=== PATIENT | female | born 1990 | race Caucasian/White ===

== ENCOUNTER 2018-04-20 18:42 | Inpatient (IN) | payer BC, SELFPAY ==
[2018-04-20 15:57] VITALS: BMI 25.7
--- NOTE | 2018-04-20 19:27 | PCM.HP.OB ---
History Date of Admission: 04/20/18 Final KRISTIN: 05/04/18 Final KRISTIN Source: US <20 weeks Gestational age: 38 Weeks and 0 Days History of this : @ 38 wks c/o contractions. pt was monitored in L&D and made cervical change from 3 to 5cm/80/-1. Pt denies VB, LOF. Pertinent Past Medical History: negative Allergies No Known Allergies Allergy (Verified 04/20/18 15:58) PNV Smoking Status: Never smoker Alcohol: None Number of Fetus(es): 1 Review of Systems Constitutional: Denies: Anorexia Cardiovascular: Denies: Chest Pain Gastrointestinal: Denies: Abdominal Pain Physical Exam General: Alert, Oriented x3 Abdomen: Soft, Non Tender, Gravid Estimated gestational size: Appropriate for gestational size Presentation: Cephalic Cervix Dilation (cm): 5 Station: -1 Effacement (%): 80 Assessment/Plan 27yo @ 38 weeks in labor 1) admit to L&D 2) requesting intermittent monitoring- low risk 3) A+, RUB imm, syphilis neg, HIV neg, HEP B neg, GBS Neg 4) Anticipate 5) Nitrous or epidural if requested for pain
[2018-04-20 19:37] LABS: Hematocrit 40.2 % (37-47); Hemoglobin 13.4 g/dl (12.0-15.0); Mean Corp Hgb Conc 33.3 g/gl (32-36); Mean Corpuscular Hgb 31.8 pg (27.0-32.0); Mean Corpuscular Volume 95.5 fL (81-99); Mean Platelet Vol. 9.8 fl (6.2-12.0); Platelet Count 246 K/mm3 (150-450); RBC Distribution Width CV 13.2 % (11.6-14.6); RBC Distribution Width SD 45.3 fl (35.1-43.9); Red Blood Count 4.21 M/mm3 (4.2-5.4); White Blood Count 11.6 K/mm3 (4.4-11.0)
[2018-04-20 19:38] LABS: Scan Indicated on CBC? Y/N NO
[2018-04-20] MEDS: Oxytocin 30 units/NS 500 ml 30 UNITS/500 ML IV.SOLN 334 UNITS IV (22:15)
[2018-04-20] MEDS: 0.9% Saline Lock 10 ML Syringe IV ×2 (22:17→23:03)
--- NOTE | 2018-04-20 22:21 | PCM.OB.VAG ---
Vaginal Delivery Maternal Presentation: Active Labor Amniotic Membrane Rupture Type: Artificial Amniotic Fluid Description: Clear Final KRISTIN: 05/04/18 Gestational age: 38 Weeks and 0 Days Date of Procedure: 04/20/18 Pre-Operative Diagnosis: term gestation, spontaneous labor Post-Operative Diagnosis: Live male infant Surgery/ Procedure Performed: Spontaneous Vaginal Delivery Type of Anesthesia: None Description of Procedure: of live male infant born without complication. Delayed cord clamping performed. No lacerations. Placenta delivered intact. Presentation: Vertex Placental Delivery Description: Spontaneous Placenta Disposition: [facility] Cord Vessel Description: 3 Vessels Cord Entanglement: None Estimated Blood Loss: 200 Infant A gender: Male (1 minute): 8 (5 minute): 9 Episiotomy Description: None Laceration: None Medications given after delivery: IV Pitocin Complications: None
[2018-04-20] MEDS: Oxytocin 30 units/NS 500 ml 30 UNITS/500 ML IV.SOLN 167 UNITS IV (22:45)
[2018-04-20] MEDS: Ibuprofen 600 MG Tablet PO (23:02)
[2018-04-21] MEDS: Methylergonovine 0.2 MG/ML Ampul IM (00:16)
[2018-04-21 04:54] VITALS: BP 105/58; PULSE 63; RESP 16; TEMP 36.9
[2018-04-21] MEDS: Acetaminophen 500 MG Tablet 1000 MG PO (04:58)
--- NOTE | 2018-04-21 07:53 | PCM.PN.OB ---
Subjective: pt seen at bedside, doing well. pt reports good pain control. lochia mild. breast feeding. - Physical Exam General: Alert, Oriented x3 Abdomen: Soft, Non Tender, - - fundus firm Extremities: No Calf Tenderness Vital Signs Temp Pulse Resp BP 98.5 F 63 16 105/58 L 04/21/18 04:54 04/21/18 04:54 04/21/18 04:54 04/21/18 04:54 Oxygen Delivery Method Room Air Weight: 74.5 kg Body Mass Index (BMI) 25.7 Laboratory Tests Past 24 Hrs 04/20/18 04/20/18 19:15 19:15 WBC 11.6 H RBC 4.21 Hgb 13.4 Hct 40.2 MCV 95.5 MCH 31.8 MCHC 33.3 RDW 13.2 RDW Differential 45.3 H Plt Count 246 MPV 9.8 Blood Type A POSITIVE Antibody Screen NEGATIVE Medical Necessity - Tobacco Use Smoking Status: Never smoker Assessment/Plan PPD#1, doing well routine care pain mgmt
--- NOTE | 2018-04-21 07:56 | DCINST_ITS ---
Discharge Diet: No Restrictions Discharge Activity: Return to Normal Activity, May not drive while taking narcotic pain medications., May Shower May resume sexual activity in: 4-6 weeks Additional Activity Instructions:: Nothing in the vagina for 4-6 weeks. You may return to work/school in 6 weeks. Call your doctor if your incision/area has: Continuous Slow Oozing, Sudden Increased Bleeding, Increased Pain/ Swelling, Increased Redness, Foul Smelling Discharge Additional Instructions: If you experience any of the following, contact your healthcare provider. * Bleeding that soaks a pad every hour for 2 hours * Fever 100.4 or higher * Unrelieved incision or abdominal pain * Swelling, redness, discharge or bleeding from your incision or episiotomy site * Your incision begins to separate * Problems urinating (including inability to urinate or burning while urinating) . * Visual changes * Severe headache * Flu-like symptoms * Pain or redness in one of both of your breasts * Pain, warmth, tenderness or swelling in your legs, especially the calf area * Frequent nausea and vomiting * Symptoms of depression or anxiety If you experience any of the following, call 911 or go to the nearest Emergency Room. * Chest pain * Problems breathing * Seizure activity * Partial or complete paralysis of a body part, slurred speech, weakness or drooping of the face, or a sudden inability to walk or hold your balance Allergies/Adverse Reactions: Allergies No Known Allergies Allergy (Verified 04/20/18 15:58) Medications to take at Discharge Vits [Prenatabs FA ] 1 tab PO DAILY 08/11/14 Acetaminophen [Tylenol] 650 mg PO PRN PRN 04/20/18 Ibuprofen [Motrin] 800 mg PO Q8H PRN PRN #30 tab 04/21/18 The following prescriptions were given: Ibuprofen [Motrin] 800 mg PO Q8H PRN PRN #30 tab PRN Reason: Pain When: Call to make an appointment with your doctor in 6 weeks. If you had elevated Blood Pressure or 4th degree laceration you will need to be seen in 2 weeks. Primary Care Physician: Haile Fong MD [Primary Care Provider] -
[2018-04-21 08:10] VITALS: BP 103/59; PULSE 66; RESP 18; TEMP 36.6
[2018-04-21] MEDS: Ibuprofen 600 MG Tablet PO ×2 (08:18→16:49)
[2018-04-21 12:30] VITALS: BP 101/67; PULSE 72; RESP 18; TEMP 36.2
[2018-04-21 16:30] VITALS: BP 107/77; PULSE 67; RESP 18; TEMP 36.4; O2SAT 97
[2018-04-21 20:50] VITALS: BP 102/57; PULSE 72; RESP 16; TEMP 36.6
[2018-04-22 01:20] VITALS: BP 117/75; PULSE 62; RESP 18; TEMP 36
[2018-04-22] MEDS: Ibuprofen 600 MG Tablet PO (01:24)
--- NOTE | 2018-04-22 07:52 | PCM.PN.OB ---
Subjective: pt seen at bedside, doing well. pt reports good pain control. lochia mild. breast feeding. - Physical Exam General: Alert, Oriented x3 Abdomen: Soft, - - fundus firm Extremities: No Calf Tenderness Vital Signs Temp Pulse Resp BP Pulse Ox 96.8 F L 62 18 117/75 97 04/22/18 01:20 04/22/18 01:20 04/22/18 01:20 04/22/18 01:20 04/21/18 16:30 Oxygen Delivery Method Room Air Weight: 74.5 kg Body Mass Index (BMI) 25.7 Medical Necessity - Tobacco Use Smoking Status: Never smoker Assessment/Plan PPD#2, doing well dc home today
[2018-04-22 08:00] VITALS: BP 103/65; PULSE 76; RESP 18; TEMP 36.7; O2SAT 98
== END 2018-04-22 09:25 | disposition home or self-care (01) | DRG 775 ==
LOC: WPOUT 18:42
PROVIDERS: Admitting Provider Obstetrics & Gynecology; Family Provider Family Medicine; PCP Family Medicine; Visit Provider Obstetrics & Gynecology
DX: O80 Encounter for full-term uncomplicated delivery (principal); Z3A.38 38 weeks gestation of pregnancy; Z37.0 Single live birth
CPT/HCPCS: 59025; 59050; 85027; 86850; 86900; 99218; A4216; G0378

== ENCOUNTER 2020-10-20 12:27 | Day surgery (SDC) | payer BC, SELFPAY ==
--- NOTE | 2020-10-19 08:04 | PCM.HP.BLA ---
History and Physical Date of Admission: 10/20/20 Sophia Willson Physician Specialty: BUSINESS PROCESS ARCHITECT H&P ? Signed Encounter Date: 10/05/2020 Viola Frances Hide copied text Frank for details Pre-Op History and Physical ? HPI: The patient is a 29 year old female presenting for pre-operative visit. She is scheduled for laparoscopic bilateral salpingectomy , for desires sterilization on 10/20/20. Procedure discussed along with risks, benefits and complications. Other alternatives discussed for management. Consent form signed? Yes. ? ? PAST MEDICAL HISTORY PAST MEDICAL HISTORY Diagnosis Date ? Oligomenorrhea ? ? ? PAST SURGICAL HISTORY PAST SURGICAL HISTORY Procedure Laterality Date ? LAPAROSCOPY, SURGICAL, APPENDECTOMY ? ? PAST SURGICAL HISTORY OF ? 08/11/14 ? repair of Sulcus tear with Delivery of child ? ? ? CURRENT MEDICATIONS Current Outpatient Medications Medication Sig Dispense Refill ? omega-3s/dha/epa/fish oil/D3 (VITAMIN-D + OMEGA-3 ORAL) Take by mouth. ? ? ? Desogestrel-Ethinyl Estradiol (APRI) 0.15-0.03 mg per tablet Take 1 tablet by mouth once daily. 3 Package 3 ? simethicone, chewable (MYLICON) 80 mg chewable tablet Take 1 tablet by mouth every 6 hours as needed. 30 tablet 0 ? ibuprofen (MOTRIN) 600 mg tablet Take 1 tablet by mouth every 6 hours as needed. 30 tablet 1 ? No current facility-administered medications for this visit. ? ? ALLERGIES: Patient has no known allergies. ? PERSONAL HISTORY: SOCIAL HISTORY Social History ? Tobacco Use ? Smoking status: Never Smoker ? Smokeless tobacco: Never Used Substance Use Topics ? Alcohol use: No ? ? Comment: None ? Drug use: No ? FAMILY HISTORY: FAMILY HISTORY FAMILY HISTORY Problem Relation Age of Onset ? other (Dementia) Maternal Grandmother ? ? Diabetes Maternal Grandfather ? ? Hypertension Paternal Grandmother ? ? Breast Cancer Maternal Aunt ? ? ? REVIEW OF SYMPTOMS: negative except as noted above PHYSICAL EXAMINATION: ? VITALS: Blood pressure 126/78, weight 133 lb (60.3 kg), last menstrual period 08/29/2020, currently . ? GENERAL: The patient is well nourished, well hydrated in no acute distress. , The patient is oriented to time, place, and person. NECK: Supple. No lynphadenopathy, normal thyroid, no thyromegaly. LUNGS: Clear to auscultation bilaterally. no wheezes, rhonchi or rales HEART: Regular rate and rhythm, Normal heart sounds and No murmurs or gallops GENITALIA: exam deferred WET PREP: Not indicated ? IMPRESSION: 29yo here for pre op for bilateral salpingectomy ? PLAN: Consent signed and post op meds given. ? Pt has been counseled on risks/benefits and alternatives of surgery including but not limited to anesthesia, bleeding, infection, injury to pelvic structures including bowel, bladder, ureters and vessels. Pt wishes to proceed with surgery at this time. COVID testing reviewed ? I have reviewed and updated past medical and surgical history, medications and allergies Sophia Willson MD ?4:52 PM Office Visit on 10/05/2020 Procedure Criteria Procedure Type: Elective COVID Risk Discussion: The surgeon/proceduralist and patient have discussed in detail the risk of exposure to and/or potential harm posed by the COVID-19 virus with having a surgery/procedure at this time versus the risk of delaying the surgery/procedure. It is not possible to know either the risk of delaying the surgery or procedure or chance of getting an infection with perfect accuracy, but a joint decision was made between the patient and the surgeon/proceduralist to proceed at this time with the scheduled surgery/procedure as indicated on the consent form.
[2020-10-20 12:46] LABS: Internal QC Validated? YES +Cl - CLEAR BKGD; Pregnancy, Urine Negative Negative
[2020-10-20 12:56] VITALS: BP 144/75; PULSE 91; RESP 16; TEMP 37.3; O2SAT 100; BMI 19.8
[2020-10-20 12:58] LABS: Hematocrit 40.9 % (37-47); Hemoglobin 13.7 g/dL (12.0-15.0); Mean Corp Hgb Conc 33.5 g/dL (32-36); Mean Corpuscular Hgb 32.2 pg (27.0-32.0); Mean Corpuscular Volume 96.2 fL (81-99); Mean Platelet Vol. 9.4 fl (6.2-12.0); Platelet Count 276 K/mm3 (150-450); RBC Distribution Width CV 11.7 % (11.6-14.6); RBC Distribution Width SD 41.1 fl (35.1-43.9); Red Blood Count 4.25 M/mm3 (4.2-5.4); White Blood Count 10.6 K/mm3 (4.4-11.0)
[2020-10-20] MEDS: 0.9% Normal Saline 1,000 ML 75 ML IV (13:02)
[2020-10-20] MEDS: Lactated Ringers 1,000 ML 100 ML IV (13:46)
--- NOTE | 2020-10-20 14:00 | FALS_PTH ---
PATIENT: JES MARSH LOC: [facility] U#:[id number] AGE/SX: 30/F ROOM: RE10/20/[address]: Dr. Sophia Thibodeaux, MDDOB: 1990 BED: DIS: 10/20/2020 SPEC #: [id number] RECD: 10/21/20 07:05 STATUS: JUVE JENNIE #: [id number] MAURICIO: 10/20/20 14:[address]: Sophia Thibodeaux DEPT: SURGICAL PATHOLOGY RECD BY: Kenya Allen ENTERED: 10/21/20 08:39 SP TYPE: FALL TUBES OTHR DR: Erendira Primary Care Phys Tissues: Fallopian tube Procedures: Surgery Specimen Level II Surgery Specimen Level IV HEADER OPERATION: Laparoscopic salpingectomy PRE-OP DIAGNOSIS: Sterilization TISSUE SUBMITTED: Bilateral fallopian tubes MICROSCOPIC DIAGNOSIS Right and left fallopian tubes, bilateral salpingectomies: Two complete segments of fallopian tubes. One fallopian tube with benign paratubal cyst. AM:sharonda 10/24/20 MICROSCOPIC DESCRIPTION Slides are reviewed. GROSS DESCRIPTION Received in fixative is one container labeled with the patient's name and designated bilateral fallopian tubes. The specimen consists of two fallopian tubes with an average length of 6 cm and has an average diameter of 0.7 cm. Both fallopian tubes have normal fimbriated ends. No mass lesions are identified. Corner Brace Block Machine Operator sections are submitted in two cassettes as follows: 1 - one fallopian tube, 2 - the other fallopian tube. / AM:sharonda 10/21/20 TC:5 CPT: 61790, 43621
[2020-10-20] MEDS: Bupivacaine Mpf 0.5% 30 ML VIAL (14:27)
--- NOTE | 2020-10-20 14:27 | OP.PCM_ITS ---
Report of Operation Date of Procedure: 10/20/20 - start 1405, end 1426 Pre-Operative Diagnosis: Desires sterilization Post-Operative Diagnosis: same Surgery/Procedure Performed:: laparoscopic bilateral salpingectomy Description of Surgical Findings:: normal tubes and ovaries bilaterally. mower sharpener: Ellen paul MS3 Type of Anesthesia:: General Special Medications: marcaine 0.5% Specimen's removed: bilateral fallopian tubes Drains: none Estimated Blood Loss (mL): 5cc Fluids Replaced: 1000cc Description of Procedure: After informed consent was obtained patient was taken to the operating room she was placed in supine position she was given anesthesia. She was then placed in the [facility] stirrups and she was prepped and draped in normal sterile fashion. Bladder was drained prior to the start of procedure. At this time attention was turned to the vaginal portion where weighted speculum placed at posterior fornix vagina single-tooth tenaculum was used to gently grasp the internal the cervix. uterus was gently sounded to approximately 7 cm. Uterine manipulator was placed without difficulty. Legs then placed in parallel with the abdomen the tenaculum and the weighted speculum were removed. 2 towel clamps were placed at level of umbilicus. Marcaine was injected infraumbilical and a small incision was made. The 5 mm trocar was placed under direct visualization. CO2 gas was used to insufflate the intra-abdominal cavity. Upon inspection no gross abnormalities appreciated- the uterus tubes and ovaries appeared to be normal. At this time then the LLQ and RLQ ports were placed First Marcaine was injected and small incision was made a knife and the 5 mm trocars were placed. At this time then tubes were traced back to the fimbriated ends. Ligasure was used to coagulate and ligate along mesosalpinx bilaterally until tubes removed completely. Good hemostasis was appreciated. At this time procedure was deemed complete successful. The gas was desufflated on from the intra-abdominal cavity. The trochars were removed. Skin was closed using 4-0 Monocryl in a subcutaneous fashion. Dermabond glue was placed. Instrument lap and needle counts were correct ?2. The uterine manipulator was removed. Vaginal sweep was performed it was negative. There were no complications anticipated normal postoperative course for this patient. Grafts/Implants Used: none - Complications none - Admit VTE Documentation VTE Present on Admission: Yes VTE Mechan Device Prophylaxis: SCD's VTE Pharm Prophylaxis ordered?: No
--- NOTE | 2020-10-20 14:31 | DCINST_ITS ---
Discharge Diet: No Restrictions, - - Increase fluid intake for 48 hours. Discharge Activity: Return to Normal Activity, May Drive - when you are no longer taking narcotic pain medications., May Shower, May Take a Tub Bath - in 7 days., - - Ambulate often the next week after surgery. May resume sexual activity in: 1 week Lifting Restrictions: 20 Additional Activity Instructions:: Nothing in the vagina for the next 5 days. Call your doctor if your incision/area has: Continuous Slow Oozing, Sudden Increased Bleeding, Increased Pain/ Swelling, Increased Redness, Foul Smelling Discharge, Swelling at the incision site Call your doctor if you observe: Fever of 101 or Higher Cleanse incision/area with: Keep Dressing Clean & Dry, - - skin glue- you may let soap and water run over incision sites and dab dry. do not pick off Allergies/Adverse Reactions: Allergies No Known Allergies Allergy (Verified 10/20/20 12:31) Medications to take at Discharge Cholecalciferol (Vitamin D3) [Vitamin D3] 25 mcg PO DAILY 10/10/20 Desogestrel-Ethinyl Estradiol [Enskyce 28 Tablet] 1 ea PO DAILY 10/10/20 Primary Care Physician: Care Physician,No Primary [Primary Care Provider] - Test Results: Test results from this visit will be discussed in further detail at your follow- up appointment, if applicable. Please Follow Up With: Sophia Thibodeaux MD When: as scheduled 2 weeks
[2020-10-20 14:36] VITALS: BP 107/86; BP 118/76; PULSE 83; RESP 16; TEMP 36.8; O2SAT 100
[2020-10-20 14:45] VITALS: BP 118/76; BP 99/59; PULSE 73; RESP 16; O2SAT 100
[2020-10-20 15:00] VITALS: BP 118/76; BP 94/54; PULSE 68; RESP 16; TEMP 36.4; O2SAT 100
[2020-10-20] MEDS: Ondansetron 4 MG/2 ML Vial IM (16:09)
[2020-10-20 16:18] VITALS: BP 118/76; BP 96/52; PULSE 60; RESP 16; TEMP 37.1; O2SAT 98
[2020-10-20 17:46] VITALS: BP 116/67; BP 118/76; PULSE 72; RESP 18; TEMP 36.9; O2SAT 100
== END 2020-10-20 18:00 | disposition home or self-care (01) ==
LOC: SDC 12:28 → AC 12:29
PROVIDERS: Referring Provider Obstetrics & Gynecology; Visit Provider Obstetrics & Gynecology
PROC: (CPT 58661; principal; 2020-10-20 13:45)
DX: Z30.2 Encounter for sterilization (principal); Z20.828 Contact with and (suspected) exposure to other viral communicable diseases
CPT/HCPCS: 00840; 58661; 81025; 85027; 87426; 88302; 88305; C9803; J7030; J2405

== ENCOUNTER → 2023-11-29 | Outpatient (CLI) | payer BC, SELFPAY ==
--- OUTSIDE RECORDS SUMMARY | 2023-11-29 15:06 | XMS RPT_ITS | CCD ---
Author Name Unknown Address [facility] [place] [address] Organization [facility] Care Team Providers Care Seamless Hosiery Knitter Name Role Phone NANCY GODOY Primary Care Unavailable SOPHIA KEITA Attending Unavail able Results Test Name Value Interpretation Reference Range Facil ity Encounters Encounter Date Encounter Type Care Provider Facility Start: 11-14-2022 End: 11-14-2022 ambulatory NANCY GODOY Facility:[facility] Payers Date Payer Category Payer Unknown [id number] Progress note 11-14-2022 Note Date & Type Note Facility 11-14-2022 Note HNO ID: [id number] Author: Sophia Willson MD Service: ? Author Type: Physician Type: Progress Notes Filed: 11/14/2022 3:28 PM Note Text: Kisha is a 32 year old who presents for an annual gynecologic exam without complaints. 3 children ages 4/6/8. Left breast pain with last cycle- resolved after menses. Menses: cycles every 28 days and 2-3 days of very light flow. Contraception: tubal sterilization HPV vaccine: No Last Pap: 10/23/2019 normal HPV: 10/23/2019 negative History of abnormal pap: No Last mammogram: never Sexually active: Yes History of STDS: None Patient concerns for STD exposure: No. Pain with intercourse: No Postcoital bleeding: No Exercise: active Diet: balanced OB History T3 L3 SAB0 IAB0 Ectopic0 Multiple0 Live Births3 Tire Mechanic History LMP: 10/25/2022, Having periods Age at Menarche: Age at First : Age at Menopause: Tire Mechanic History Comments: Sexual Activity: Yes; Male Contraception: None PAST MEDICAL HISTORY Diagnosis Date Oligomenorrhea PAST SURGICAL HISTORY Procedure Laterality Date LAPAROSCOPIC APPENDECTOMY PAST SURGICAL HISTORY OF 08/11/14 repair of Sulcus tear with Delivery of child SALPINGECTOMY Bilateral 10/2020 [facility]- Dr. Willson FAMILY HISTORY Problem Relation Age of Onset other (Dementia) Maternal Grandmother Diabetes Maternal Grandfather Hypertension Paternal Grandmother Breast Cancer Maternal Aunt SOCIAL HISTORY Social History Tobacco Use Smoking status: Never Smokeless tobacco: Never Vaping Use Vaping Use: Never used Substance Use Topics Alcohol use: No Comment: None Drug use: No REVIEW OF SYSTEMS Abdomen: No abdominal pain, nausea, vomiting, diarrhea, or constipation. No bloating, early satiety, indigestion, or increased flatulence. Bladder: No dysuria, gross hematuria, urinary frequency, urinary urgency, or incontinence. Breast: No breast lumps, nipple d/c, overlying skin changes, redness or skin retraction. Allergies and current medication updated:Yes EXAM: BP 100/60 Ht 5' 7 (1.70m) Wt 136 lb (61.7kg) LMP 10/25/2022 BMI 21.30 kg/(m2). GENERAL: pleasant, female in no apparent distress HEENT: Normocephalic, atraumatic, mucus membranes moist, and no lesions NECK: Supple, full range of motion, no adenopathy, and thyroid normal DERMATOLOGY: Normal, without lesions, non-icteric, and non-hirsute BREAST: soft, non-tender, symmetric, no dominant mass, normal nipple-areolar complex, no lymphadenopathy, and no nipple discharge ABDOMEN: soft, non-tender, and no masses PELVIC: external genitalia normal, normal Bartholin's glands, urethra, [place]'s glands, no vulvar lesions, no cervical lesions, good vaginal support, physiologic discharge present, normal appearing perineal body and perianal region BIMANUAL: uterus normal size, shape and consistency, no adnexal masses, and non-tender RECTOVAGINAL: deferred. NEURO: alert and oriented x3,exam grossly non-focal EXTREMITIES: normal ASSESSMENT/PLAN: 1) Health maintenance: Pap/HPV up to date. Mammogram starting age 40. Nutrition, exercise and routine health maintenance exams reviewed. 2) Contraception: tubal sterilization. Contraceptive options reviewed and information provided. 3) STD screening: Declined STD check. 4) Follow up one year or sooner as needed 5) reassusrance about breast pain- if any concerns return to office. Sophia Thibodeaux MD [facility] Progress note 11-14-2022 Note Date & Type Note Facility 11-14-2022 Note HNO ID: [id number] Author: Janee Barnett Ma Service: ? Author Type: ? 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 [facility] Summary Purpose Family History No Family History Records Found Advance Directives No Advanced Directives Records Found Additional Source Comments INFORMATION SOURCE (unrecogn ized section and content) FOR RECORDS PERTAINING TO PATIENTS WHO ARE OR HAVE BEEN ENROLLED IN A CHEMICAL DEPENDENCY/SUBSTANCEABUSE PROGRAM, SOME INFORMATION MAY BE OMITTED. This clinical summary was aggregated from multiple sources. Caution should be exercised in using it in the provision of clinical care. This summary normalizes information from multiple sources, and as a consequence, information in this document may materially change the coding, format and clinical context of patient data. In addition, data may be omitted in some cases. CLINICAL DECISIONS SHOULD BE BASED ON THE PRIMARY CLINICAL RECORDS. [employer] provides no warranty or guarantee of the accuracy or completeness of information in this document.
[2023-11-29 17:31] LABS: Absolute Lymphocyte Count 2.34 X10^3/uL (0.83-4.51); Absolute Neutrophil Count 3.5 X10^3/uL (2.0-7.7); Basophil# 0.04 X10^3/uL; Basophil% 0.6 % (0-1); Eosinophil# 0.06 X10^3/uL; Eosinophils% 0.9 % (0-5); Hematocrit 40.9 % (37-47); Hemoglobin 13.8 g/dL (12.0-15.0); Lymphocyte # 2.34 X10^3/ul (0.83-4.51); Lymphocyte % 36.9 % (19-41); Mean Corp Hgb Conc 33.7 g/dL (32-36); Mean Corpuscular Hgb 32.8 pg (27.0-32.0); Mean Corpuscular Volume 97.1 fL (81-99); Mean Platelet Vol. 9.9 fl (6.2-12.0); Monocyte% 6.3 % (0-10); NRBC Flagged by Analyzer 0 % (0-5); Neutrophil # 3.49 X10^3/uL (2.7-7.7); Platelet Count 203 K/mm3 (150-450); RBC Distribution Width CV 12.8 % (11.6-14.6); RBC Distribution Width SD 45.9 fl (35.1-43.9); Red Blood Count 4.21 M/mm3 (4.2-5.4); White Blood Count 6.4 K/mm3 (4.4-11.0)
[2023-11-29 17:43] LABS: Vitamin B12 514 pg/mL (211-911); Vitamin D,25 Hydroxy 47.7 ng/mL
[2023-11-29 18:01] LABS: ALB/GLOB Ratio 1.1 RATIO (0.9-2.4); AST(SGOT) 18 U/L (15-37); Alanine Aminotransfer ALT/SGPT 30 U/L (13-56); Albumin, Serum 3.8 g/dL (3.2-5.0); Alkaline Phosphatase 48 U/L (45-117); Anion Gap 6 (5-15); BUN 20 mg/dL (7-18); BUN/Creat Ratio 24.8 RATIO (10-20); Calcium,Total 8.5 mg/dL (8.5-10.1); Chloride 106 mmol/L (98-107); EST Glomerular Filtration Rate 87 mL/min (>60); Est Glom Filt Rate - Afr Amer 105 mL/min (>60); Globulin 3.4 g/dL (2.2-4.2); Glucose 94 mg/dL (74-106); Potassium 4.1 mmol/L (3.5-5.1); Protein, Total 7.2 g/dL (6.4-8.2); Sodium Level 140 mmol/L (136-145); T4 Free Direct 0.76 ng/dL (0.76-1.46)
== END | disposition home or self-care (01) ==
LOC: MFPLAB 14:40
PROVIDERS: Visit Provider Family Medicine
DX: R53.83 Other fatigue (principal)
CPT/HCPCS: 36415; 80053; 82306; 82607; 84439; 84443; 85025

== ENCOUNTER → 2025-05-25 | Outpatient (CLI) | payer BC, SELFPAY ==
--- NOTE | 2025-05-25 10:43 | RAD_ITS ---
PROCEDURE: ACUTE ABDOMEN INC CHEST 05/25/2025 REASON FOR EXAM: CONSTIPATION TECHNIQUE: Four view ACUTE ABDOMEN including PA CHEST COMPARISON: None provided. RAD/Acute Abdomen Inc Chest IMPRESSION: No evidence of pneumoperitoneum. Surgical clips are seen of the right lower quadrant of the abdomen/upper pelvis . Lungs are hyperinflated, but no acute pneumonic process is otherwise noted. No pleural effusion or pneumothorax is seen. The cardiomediastinal silhouette is within the normal range. No excess stool burden is clearly evident. The bowel-gas pattern is unremarkable. No mass or mass effect is seen. No significant osseous changes noted. Reading Location: [place] [id number]
[2025-05-25 12:28] LABS: Hematocrit 41.5 % (37-47); Mean Corp Hgb Conc 33.7 g/dL (32-36); Mean Corpuscular Hgb 32.8 pg (27.0-32.0); Mean Corpuscular Volume 97.2 fL (81-99); Mean Platelet Vol. 9.9 fl (6.2-12.0); Platelet Count 226 K/mm3 (150-450); RBC Distribution Width CV 12.1 % (11.6-14.6); RBC Distribution Width SD 43.2 fl (35.1-43.9); Red Blood Count 4.27 M/mm3 (4.2-5.4); White Blood Count 6.5 K/mm3 (4.4-11.0)
[2025-05-25 13:20] LABS: ALB/GLOB Ratio 1.6 RATIO (0.9-2.4); AST(SGOT) 24 U/L (<=31); Alanine Aminotransfer ALT/SGPT 28 U/L (<=34); Albumin, Serum 4.4 g/dL (3.5-5.0); Alkaline Phosphatase 51 U/L (35-104); Anion Gap 11 (5-15); BUN 16 mg/dL (4-19); BUN/Creat Ratio 19.4 RATIO (10-20); Calcium,Total 9.3 mg/dL (7.6-11.0); Chloride 104 mmol/L (98-108); Creatinine, Serum 0.84 mg/dL (0.70-1.20); EST Glomerular Filtration Rate 93 (>60); Globulin 2.8 g/dL (2.2-4.2); Glucose 98 mg/dL (70-99); Potassium 4.4 mmol/L (3.3-5.1); Protein, Total 7.3 g/dL (5.9-8.4); Sodium Level 139 mmol/L (133-145); Total Bilirubin 0.38 mg/dL (0.00-1.30)
--- OUTSIDE RECORDS SUMMARY | 2025-05-25 21:33 | XMS RPT_ITS | CCD ---
Author Organization [facility] Informat ion Partnership [facility] Care Team Providers Care School Age Lead Teacher Name Role Phone Nancy Whatley Attending Unavailable Care Physician, No Primary Primary Care Unava Nancy Newberry MD Primary Care Provider NANCY GODOY Primary Care Unavailable DASIA THOMAS Attending Unavail able Medications Current Medications Medication Drug Class(es) Dates Sig (Normalized) Sig (Original) ibuprofen 600 mg oral tablet (1 source) Nonsteroidal Anti-inflammatory Drug Start: 10-05-2020 take 1 tablet by mouth every six hours as needed ibuprofen (MOTRIN) 600 mg tablet Take 1 tablet by mouth every 6 hours as needed. 30 tablet 1 10/05/2020 Active Multivitamin capsule (1 source) take 1 capsule by mouth once daily Multivitamin capsule Take 1 capsule by mouth once daily. Active Problems Active Problems Problem Classification Problem Date Documented Da te Episodic/Chronic Other screening for suspected conditions (not mental disorders or infectious disease) (2 sources) Cancer cervix screening status; Translations: [Encounter for screening for malignant neoplasm of cervix] 07-24-2024 Episodic Past or Other Problems Problem Classification Problem Date Documented Date Episodic/Chronic Appendicitis and other appendiceal conditions (1 source) Acute appendicitis; Translations: [Unspecified acute appendicitis] Onset: 7 Resolved: 9 09-07-2009 Episodic Menstrual disorders (2 sources) Amenorrhea; Translations: [Amenorrhea, unspecified] Onset: 9 Resolved: 4 11-23-2011 Chronic Other complications of (1 source) History of gynecological disorder; Translations: [Supervision of with other poor reproductive or obstetric history, unspecified trimester] Onset: 6 Resolved: 6 07-20-2016 Episodic Other endocrine disorders (1 source) Hyperandrogenization syndrome; 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] Onset: 9 Resolved: 4 01-25-2014 Chronic Other and delivery including normal (4 sources) with uncertain dates; Translations: [Encounter for supervision of normal , unspecified, unspecified trimester] Onset: 4 Resolved: 6 11-27-2021 Episodic Residual codes; unclassified (1 source) Family history of Spina bifida; Translations: [Family history of other congenital malformations, deformations and chromosomal abnormalities] Onset: 4 Resolved: 6 09-12-2017 Episodic Residual codes; unclassified (1 source) History of past delivery; Translations: [Personal history of other complications of , childbirth and the puerperium] Onset: 7 Resolved: 8 06-11-2018 Episodic Results Test Name Value Interpretation Reference Range Facility [facility] 07-24-2024 CNOV Office Visit (OBGYWM ) KISHA MARSH ([id number]) 1990 F Date Time Provider Department 07/24/24 8:40 AM DASIA THOMAS OBGYWLashae During your visit today, we recorded the following information about you: Pulse Respiration Blood pressure Weight 81/minute 16/minute 102/64 60.9 kg Height Last Period 1.711 m 07/20/24 Dasia Thomas MD 07/24/2024 9:14 AM Signed patient 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 3 kids grades 1-4 . Menses: cycles every 28 days and 4 days of flow. Contraception: tubal sterilization HPV vaccine: No Last Pap: 10/23/2019 normal HPV: 10/23/2019 negative History of abnormal pap: No Last mammogram: never Sexually active: Yes History of STDS: None Patient concerns for STD exposure: No. 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 Willson FAMILY HISTORY Problem Relation Age of Onset other (Dementia) Maternal Grandmother Diabetes Maternal Grandfather Hypertension Paternal Grandmother Breast Cancer Maternal Aunt SOCIAL HISTORY Social History Tobacco Use Smoking status: Never Smokeless tobacco: Never Vaping Use Vaping status: Never Used Substance Use Topics Alcohol use: No Comment: None Drug use: No REVIEW OF SYSTEMS Abdomen: No abdominal pain, nausea, vomiting, diarrhea, or constipation. No bloating, early satiety, indigestion, or increased flatulence. Bladder: No dysuria, gross hematuria, urinary frequency, urinary urgency, or incontinence. Breast: No breast lumps, nipple d/c, overlying skin changes, redness or skin retraction. Allergies and current medication updated:Yes EXAM: BP 102/64 Pulse 81 Resp 16 Ht 5' 7.362 (1.71m) Wt 134 lb 3.2 oz (60.9kg) SpO2 100% LMP 07/20/2024 BMI 20.79 kg/(m2). GENERAL: pleasant, female in no apparent [...] external genitalia normal, normal Bartholin's glands, urethra, Teaticket's glands, no vulvar lesions, no cervical lesions, good vaginal support, physiologic discharge present, normal appearing perineal body and perianal region BIMANUAL: uterus normal size, shape and consistency, no adnexal masses, and non-tender RECTOVAGINAL: deferred. NEURO: alert and oriented x3,exam grossly non-focal EXTREMITIES: normal ASSESSMENT/PLAN: 1) Health maintenance: Pap done with HPV. Mammogram starting age 40. Nutrition, exercise and routine health maintenance exams reviewed. Colon cancer screening: start at age 45 2) Contraception: tubal sterilization. Contraceptive options reviewed and information provided. 3) STD screening: Declined STD check. 4) Follow up one year or sooner as needed Dasia Thibodeaux MD Allergies As of Date: 07/24/2024 (No Known Allergies) Date Reviewed: 07/24/2024 Reviewed by: Dina Meza MA - Fully Assessed Reason for Visit: Well Woman [1463] Primary Visit Diagnosis:Encounter for gynecological examination (general) (routine) without abnormal findings [Z01.419] Other Visit Diagnoses:Screening for cervical cancer [Z12.4] Encounter for screening mammogram for breast cancer [Z12.31] Order(s):PAP TEST [QYG6366] Order #: [id number] Prescriptions as of 07/24/2024 - Multivitamin capsule Take 1 capsule by mouth once daily. - ibuprofen (MOTRIN) 600 mg tablet Take 1 tablet by mouth every 6 hours as needed. 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 Normal [facility] HIGH RISK HUMAN PAPILLOMA SAI (HPV), PCR FOR DETECTION AND GENOTYPINGon 07-24-2024 HPV 16 Ag Ql (Unsp spec) Not detected Normal Not detected [facility] Comment on above: Order Comment: Speci men Type: FLUID SPECIMEN Ordering Facility: [facility] Address: [address] [place] [address] Performed By: #### H PVHRT, [id number] #### [facility] CLIA [id number] [address] [place] [address] [place] HPV 18 Ag Ql (Unsp spec) Not detected Normal Not detected [facility] Comment on above: Order Comment: Speci men Type: FLUID SPECIMEN Ordering Facility: [facility] Address: [address] [place] [address] Performed By: #### H PVHRT, [id number] #### [facility] CLIA [id number] [address] [place] [address] [place] HPV 31+33+35+39+45+51+5 2+56+58+59+66+68 DNA MARGOTH+probe Ql (Cvx) Not detected Normal Not detected [facility] Comment on above: Order Comment: Speci men Type: FLUID SPECIMEN Ordering Facility: [facility] Address: [address] [place] [address] Result Comment: High Risk HPV Other Type includes HPV types 31, 33, 35, 39, 45, 51, 52, 56, 58, 59, 66 and 68. Performed By: #### H PVHRT, [id number] #### [facility] CLIA [id number] [address] [place] [address] [place] PAP TESTon 07-24-2024 ADEQUACY Satisfactory for interpretation. Normal [facility] Comment on above: Order Comment: Speci men Type: FLUID SPECIMEN Ordering Facility: [facility] Address: [address] [place] [address] Performed By: #### H PVHRT, [id number] #### [facility] CLIA [id number] [address] [place] [address] [place] CASE REPORT Normal [facility] Comment on above: Order Comment: Speci men Type: FLUID SPECIMEN Ordering Facility: [facility] Address: [address] [place] [address] Result Comment: Gyne cologic Cytology Report Case: [id number] Authorizing Provider: Dasia Thomas, Collected: 07/24/2024 09:17 AM MD Ordering Location: OB/Gynecology Received: 07/24/2024 12:10 PM First Screen: Yissel Connor, CT, ASCP Specimen: Pap Test, ThinPrep, Cervix Performed By: #### H PVHRT, [id number] #### [facility] CLIA [id number] [address] [place] [address] [place] CLINICAL HISTORY, CYTOLOGY, COATING AND EMBOSSING UNIT OPERATOR Routine Exam Normal [facility] Comment on above: Order Comment: Speci men Type: FLUID SPECIMEN Ordering Facility: [facility] Address: [address] [place] [address] Performed By: #### H PVHRT, [id number] #### [facility] CLIA [id number] [address] [place] [address] [place] FINAL PERFORMING LAB Normal [facility] Comment on above: Order Comment: Speci men Type: FLUID SPECIMEN Ordering Facility: [facility] Address: [address] [place] [address] Result Comment: Tech nical component, press box custodian screening performed at [facility], [address] [place] [address] CLIA# [id number] Diagnostic interpretation performed at [facility], [address] [place] [address] CLIA# [id number] Blocker Polishing: Dwayne Flores M.D. Performed By: #### H PVHRT, [id number] #### [facility] CLIA [id number] [address] [place] [address] [place] HPV REFLEX Yes HPV Normal [facility] Comment on above: Order Comment: Speci men Type: FLUID SPECIMEN Ordering Facility: [facility] Address: [address] [place] [address] Performed By: #### H PVHRT, [id number] #### [facility] CLIA [id number] [address] [place], [place] [address] [address] [place] INTERPRETATION, CYTOLOGY, COATING AND EMBOSSING UNIT OPERATOR Normal [facility] Comment on above: Order Comment: Speci men Type: FLUID SPECIMEN Ordering Facility: [facility] Address: [address] [place] [address] Result Comment: Nega tive for intraepithelial lesion or malignancy. Performed By: #### H PVHRT, [id number] #### [facility] CLIA [id number] [address] [place] [address] [place] LMP 07/20/2024 Normal [facility] Comment on above: Order Comment: Speci men Type: FLUID SPECIMEN Ordering Facility: [facility] Address: [address] [place] [address] Performed By: #### H PVHRT, [id number] #### [facility] CLIA [id number] [address] [place] [address] [place] PAP DISCLAIMER COMMENT The Pap Smear is a screening test for cervical cancer. False negative results occur with all screening tests, emphasizing the need for rescreening at recommended intervals, and clinical correlation. Normal [facility] Comment on above: Order Comment: Speci men Type: FLUID SPECIMEN Ordering Facility: [facility] Address: [address] [place] [address] Performed By: #### H PVHRT, [id number] #### [facility] CLIA [id number] [address] [place], [place] [address] [place] [id number] [place] PAP PYROTECHNIC MIXER COMMENT This specimen has be en analyzed by the ThinPrep Imaging System, an automated imaging and review system, which assists the laboratory in evaluating cells on ThinPrep Pap tests. Following automated imaging, selected pablo from every slide are reviewed by a press box custodian. Normal [facility] Comment on above: Order Comment: Speci men Type: FLUID SPECIMEN Ordering Facility: [facility] Address: [address] [place], [place] [id number] Performed By: #### H PVHRT, [id number] #### [facility] CLIA [id number] [address] [place] [address] [address] [place] CBC W/Diff, Automatedon 12-2 Absolute Lymph 2.34 X10 3/uL Normal 0.83-4.51 [facility] Comment on above: Order Comment: Order Date: 11/29/23 Order Info: 0184-1 - CBCD Performed By: #### L 500.4050, L506.0400, L503.0105, L100.0100, L506.1000, L501.9520 #### [facility] [address] [place], [address] Absolute Neut 3.5 X10 3/uL Normal 2.0-7.7 [facility] Comment on above: Order Comment: Order Date: 11/29/23 Order Info: 0184-1 - CBCD Performed By: #### L 500.4050, L506.0400, L503.0105, L100.0100, L506.1000, L501.9520 #### [facility] [address] [place], [address] Basophils/100 WBC (Bld) 0.6 % Normal 0-1 [facility] Comment on above: Order Comment: Order Date: 11/29/23 Order Info: 0184-1 - CBCD Performed By: #### L 500.4050, L506.0400, L503.0105, L100.0100, L506.1000, L501.9520 #### [facility] [address] [place], [address] Eosinophils/100 WBC (Bld) 0.9 % Normal 0-5 [facility] Comment on above: Order Comment: Order Date: 11/29/23 Order Info: 0184-1 - CBCD Performed By: #### L 500.4050, L506.0400, L503.0105, L100.0100, L506.1000, L501.9520 #### [facility] [address] [place], [address] Erythrocyte distribution width (RBC) [Ratio] 12.8 % Normal 11.6-14.6 [facility] Comment on above: Order Comment: Order Date: 11/29/23 Order Info: 0184-1 - CBCD Performed By: #### L 500.4050, L506.0400, L503.0105, L100.0100, L506.1000, L501.9520 #### [facility] [address] [place], [address] Hematocrit (Bld) [Volume fraction] 40.9 % Normal 37-47 [facility] Comment on above: Order Comment: Order Date: 11/29/23 Order Info: 0184-1 - CBCD Performed By: #### L 500.4050, L506.0400, L503.0105, L100.0100, L506.1000, L501.9520 #### [facility] [address] [place], [address] Hemoglobin (Bld) [Mass/Vol] 13.8 g/dL Normal 12.0-15.0 [facility] Comment on above: Order Comment: Order Date: 11/29/23 Order Info: 0184-1 - CBCD Performed By: #### L 500.4050, L506.0400, L503.0105, L100.0100, L506.1000, L501.9520 #### [facility] [address] [place], [address] IG% 0.300 Normal 0.0-0.9 [facility] Comment on above: Order Comment: Order Date: 11/29/23 Order Info: 018- - CBCD Result Comment: IG% - Immature Granulocytes (promyelocytes, myelocytes and metamyelocytes) > 1% indicates that a LEFT SHIFT is Present. Performed By: #### L 500.4050, L506.0400, L503.0105, L100.0100, L506.1000, L501.9520 #### [facility] [address] [place], [address] Lymphocytes/100 WBC (Bld) 36.9 % Normal 19-41 [facility] Comment on above: Order Comment: Order Date: 11/29/23 Order Info: 01803-02 - CBCD Performed By: #### L 500.4050, L506.0400, L503.0105, L100.0100, L506.1000, L501.9520 #### [facility] [address] [place], [address] MCH (RBC) [Entitic mass] 32.8 pg High 27.0-32.0 [facility] Comment on above: Order Comment: Order Date: 11/29/23 Order Info: 01803-02 - CBCD Performed By: #### L 500.4050, L506.0400, L503.0105, L100.0100, L506.1000, L501.9520 #### [facility] [address] [place], [address] MCHC (RBC) [Mass/Vol] 33.7 g/dL Normal 32-36 [facility] Comment on above: Order Comment: Order Date: 11/29/23 Order Info: 01803-02 - CBCD Performed By: #### L 500.4050, L506.0400, L503.0105, L100.0100, L506.1000, L501.9520 #### [facility] [address] [place], [address] MCV (RBC) [Entitic vol] 97.1 fL Normal 81-99 [facility] Comment on above: Order Comment: Order Date: 11/29/23 Order Info: 0184-1 - CBCD Performed By: #### L 500.4050, L506.0400, L503.0105, L100.0100, L506.1000, L501.9520 #### [facility] [address] [place], [address] Monocytes/100 WBC (Bld) 6.3 % Normal 0-10 [facility] Comment on above: Order Comment: Order Date: 11/29/23 Order Info: 0184-1 - CBCD Performed By: #### L 500.4050, L506.0400, L503.0105, L100.0100, L506.1000, L501.9520 #### [facility] [address] [place], [address] Neutrophils/100 WBC (Bld) 55.0 % Normal 47-70 [facility] Comment on above: Order Comment: Order Date: 11/29/23 Order Info: 0184-1 - CBCD Performed By: #### L 500.4050, L506.0400, L503.0105, L100.0100, L506.1000, L501.9520 #### [facility] [address] [place], [address] Nucleated RBC (Bld) [#/Vol] 0 10*3/uL Normal 0-5 [facility] Comment on above: Order Comment: Order Date: 11/29/23 Order Info: 0184-1 - CBCD Performed By: #### L 500.4050, L506.0400, L503.0105, L100.0100, L506.1000, L501.9520 #### [facility] [address] [place], [address] Platelet mean volume (Bld) [Entitic vol] 9.9 fL Normal 6.2-12.0 [facility] Comment on above: Order Comment: Order Date: 11/29/23 Order Info: 01803-02 - CBCD Performed By: #### L 500.4050, L506.0400, L503.0105, L100.0100, L506.1000, L501.9520 #### [facility] [address] [place], [address] Platelets (Bld) [#/Vol] 203 10*3/uL Normal 150-450 [facility] Comment on above: Order Comment: Order Date: 11/29/23 Order Info: 018- - CBCD Performed By: #### L 500.4050, L506.0400, L503.0105, L100.0100, L506.1000, L501.9520 #### [facility] [address] [place], [address] RBC (Bld) [#/Vol] 4.21 10*6/uL Normal 4.2-5.4 [facility] Comment on above: Order Comment: Order Date: 11/29/23 Order Info: 01803-02 - CBCD Performed By: #### L 500.4050, L506.0400, L503.0105, L100.0100, L506.1000, L501.9520 #### [facility] [address] [place], [address] RDW SD 45.9 fl High 35.1-43.9 [facility] Comment on above: Order Comment: Order Date: 11/29/23 Order Info: 01803-02 - CBCD Performed By: #### L 500.4050, L506.0400, L503.0105, L100.0100, L506.1000, L501.9520 #### [facility] [address] [place], [address] WBC (Bld) [#/Vol] 6.4 10*3/uL Normal 4.4-11.0 [facility] Comment on above: Order Comment: Order Date: 11/29/23 Order Info: 018- - CBCD Performed By: #### L 500.4050, L506.0400, L503.0105, L100.0100, L506.1000, L501.9520 #### [facility] [address] [place], [address] Comprehensive Metabolic Prof ilon 11-29-2023 Albumin [Mass/Vol] 3.8 g/dL Normal 3.2-5.0 [facility] Comment on above: Order Comment: Order Date: 11/29/23 Order Info: 0786-1 - CMP Order Info: 301-3 - TSH Order Info: 3027 - T4F Performed By: #### L 500.4050, L506.0400, L503.0105, L100.0100, L506.1000, L501.9520 #### [facility] [address] [place], [address] Albumin/Globulin [Mass ratio] 1.1 {ratio} Normal 0.9-2.4 [facility] Comment on above: Order Comment: Order Date: 11/29/23 Order Info: 0786-1 - CMP Order Info: 6-3 - TSH Order Info: 3027 - T4F Performed By: #### L 500.4050, L506.0400, L503.0105, L100.0100, L506.1000, L501.9520 #### [facility] [address] [place], [address] ALK P 48 U/L Normal 45-117 [facility] Comment on above: Order Comment: Order Date: 11/29/23 Order Info: 0786-1 - CMP Order Info: 3016-3 - TSH Order Info: 3024-7 - T4F Performed By: #### L 500.4050, L506.0400, L503.0105, L100.0100, L506.1000, L501.9520 #### [facility] [address] [place], [address] ALT [Catalytic activity/Vol] 30 U/L Normal 13-56 [facility] Comment on above: Order Comment: Order Date: 11/29/23 Order Info: 0786-1 - CMP Order Info: 3016-3 - TSH Order Info: 3024-7 - T4F Performed By: #### L 500.4050, L506.0400, L503.0105, L100.0100, L506.1000, L501.9520 #### [facility] [address] [place], [address] AST [Catalytic activity/Vol] 18 U/L Normal 15-37 [facility] Comment on above: Order Comment: Order Date: 11/29/23 Order Info: 86-1 - CMP Order Info: 3 - TSH Order Info: 3027 - T4F Performed By: #### L 500.4050, L506.0400, L503.0105, L100.0100, L506.1000, L501.9520 #### [facility] [address] [place], [place], [id number] Bilirubin [Mass/Vol] 0.40 mg/dL Normal 0.20-1.00 [facility] Comment on above: Order Comment: Order Date: 11/29/23 Order Info: 86-1 - CMP Order Info: 3016-3 - TSH Order Info: 302-7 - T4F Result Comment: For patients on eltrombopag therapy, use of Dimension [place] TBIL is not recommended. Performed By: #### L 500.4050, L506.0400, L503.0105, L100.0100, L506.1000, L501.9520 #### [facility] [address] [place], [place], [id number] BUN/CRE 24.8 RATIO High 10-20 [facility] Comment on above: Order Comment: Order Date: 11/29/23 Order Info: 0786-1 - CMP Order Info: 3016-3 - TSH Order Info: 3024-7 - T4F Performed By: #### L 500.4050, L506.0400, L503.0105, L100.0100, L506.1000, L501.9520 #### [facility] [address] [place], [address] CA,Total 8.5 mg/dL Normal 8.5-10.1 [facility] Comment on above: Order Comment: Order Date: 11/29/23 Order Info: 0786-1 - CMP Order Info: 3016-3 - TSH Order Info: 3024-7 - T4F Performed By: #### L 500.4050, L506.0400, L503.0105, L100.0100, L506.1000, L501.9520 #### [facility] [address] [place], [address] Chloride [Moles/Vol] 106 mmol/L Normal 98-107 [facility] Comment on above: Order Comment: Order Date: 11/29/23 Order Info: 0786-1 - CMP Order Info: 3 - TSH Order Info: 3024-7 - T4F Performed By: #### L 500.4050, L506.0400, L503.0105, L100.0100, L506.1000, L501.9520 #### [facility] [address] [place], [address] CO2 [Moles/Vol] 28.0 mmol/L Normal 21.0-32.0 [facility] Comment on above: Order Comment: Order Date: 11/29/23 Order Info: 0786-1 - CMP Order Info: 3016-3 - TSH Order Info: 3024-7 - T4F Performed By: #### L 500.4050, L506.0400, L503.0105, L100.0100, L506.1000, L501.9520 #### [facility] [address] [place], [address] Creatinine [Mass/Vol] 0.80 mg/dL Normal 0.55-1.02 [facility] Comment on above: Order Comment: Order Date: 11/29/23 Order Info: 785- - CMP Order Info: [id number] - TSH Order Info: 3024-06 - T4F Result Comment: The validity of the calculated GFR GFRAA in patients over 70 years has not been determined. Clinical correlation is essential. Performed By: #### L 500.4050, L506.0400, L503.0105, L100.0100, L506.1000, L501.9520 #### [facility] [address] [place], [address] EST GFR - AA 105 mL/min Normal >60 [facility] Comment on above: Order Comment: Order Date: 11/29/23 Order Info: 785-12 - CMP Order Info: 3016-01 - TSH Order Info: 3024-06 - T4F Result Comment: Afri can Peruvian GFR Calc Performed By: #### L 500.4050, L506.0400, L503.0105, L100.0100, L506.1000, L501.9520 #### [facility] [address] [place], [address] GAP 6 Normal 5-15 [facility] Comment on above: Order Comment: Order Date: 11/29/23 Order Info: 785-12 - CMP Order Info: [id number] - TSH Order Info: 3024-06 - T4F Performed By: #### L 500.4050, L506.0400, L503.0105, L100.0100, L506.1000, L501.9520 #### [facility] [address] [place], [address] GFR/1.73 sq M.predicted among non-blacks MDRD (S/P/Bld) [Vol rate/Area] 87 mL/min/{1.73_m2} Normal >60 [facility] Comment on above: Order Comment: Order Date: 11/29/23 Order Info: 071 - CMP Order Info: 3016-01 - TSH Order Info: 3024-06 - T4F Result Comment: Non- GFR Calc Performed By: #### L 500.4050, L506.0400, L503.0105, L100.0100, L506.1000, L501.9520 #### [facility] [address] [place], [address] Globulin (S) [Mass/Vol] 3.4 g/dL Normal 2.2-4.2 [facility] Comment on above: Order Comment: Order Date: 11/29/23 Order Info: 0786-1 - CMP Order Info: 3015-3 - TSH Order Info: 3024-7 - T4F Performed By: #### L 500.4050, L506.0400, L503.0105, L100.0100, L506.1000, L501.9520 #### [facility] [address] [place], [address] Glucose [Mass/Vol] 94 mg/dL Normal 74-106 [facility] Comment on above: Order Comment: Order Date: 11/29/23 Order Info: 0786- - CMP Order Info: 3 - TSH Order Info: [id number] - T4F Performed By: #### L 500.4050, L506.0400, L503.0105, L100.0100, L506.1000, L501.9520 #### [facility] [address] [place], [address] Potassium [Moles/Vol] 4.1 mmol/L Normal 3.5-5.1 [facility] Comment on above: Order Comment: Order Date: 11/29/23 Order Info: 0786-1 - CMP Order Info: 3 - TSH Order Info: 3024-7 - T4F Performed By: #### L 500.4050, L506.0400, L503.0105, L100.0100, L506.1000, L501.9520 #### [facility] [address] [place], [address] Sodium [Moles/Vol] 140 mmol/L Normal 136-145 [facility] Comment on above: Order Comment: Order Date: 11/29/23 Order Info: 0786-1 - CMP Order Info: 3015-3 - TSH Order Info: 3024-7 - T4F Performed By: #### L 500.4050, L506.0400, L503.0105, L100.0100, L506.1000, L501.9520 #### [facility] [address] [place], [address] T PROT 7.2 g/dL Normal 6.4-8.2 [facility] Comment on above: Order Comment: Order Date: 11/29/23 Order Info: 07-1 - CMP Order Info: 3 - TSH Order Info: 3024-7 - T4F Performed By: #### L 500.4050, L506.0400, L503.0105, L100.0100, L506.1000, L501.9520 #### [facility] [address] [place], [address] Urea nitrogen [Mass/Vol] 20 mg/dL High 7-18 [facility] Comment on above: Order Comment: Order Date: 11/29/23 Order Info: 0786 - CMP Order Info: 3 - TSH Order Info: 3024-7 - T4F Performed By: #### L 500.4050, L506.0400, L503.0105, L100.0100, L506.1000, L501.9520 #### [facility] [address] [place], [address] T4 Free Directon 11-29-2023 T4 FREE DIRECT 0.76 ng/dL Normal 0.76-1.46 [facility] Comment on above: Order Comment: Order Date: 11/29/23 Order Info: 0786-1 - CMP Order Info: 3016-3 - TSH Order Info: 3024-7 - T4F Performed By: #### L 500.4050, L506.0400, L503.0105, L100.0100, L506.1000, L501.9520 #### [facility] [address] [place], [place], [id number] Thyroid Stim Hormone (TSH)on 11-29-2023 TSH 1.40 uIU/mL Normal 0.358-3.74 [facility] Comment on above: Order Comment: Order Date: 11/29/23 Order Info: 0786-1 - CMP Order Info: 3016-3 - TSH Order Info: 3024-7 - T4F Performed By: #### L 500.4050, L506.0400, L503.0105, L100.0100, L506.1000, L501.9520 #### [facility] [address] [place], [place], [address] Vitamin B12on 11-29-2023 Cobalamin (Vitamin B12) [Mass/Vol] 514 pg/mL Normal 211-911 [facility] Comment on above: Order Comment: Order Date: 11/29/23 Order Info: 2132-9 - B12 Order Info: [id number] - VITD25 Performed By: #### L 500.4050, L506.0400, L503.0105, L100.0100, L506.1000, L501.9520 #### [facility] [address] [place], [place], [address] Vitamin D,25 Hydroxyon 11-29 Vitamin D 25-OH 47.7 ng/mL Normal [facility] Comment on above: Order Comment: Order Date: 11/29/23 Order Info: 2132-9 - B12 Order Info: [id number] - VITD25 Result Comment: Roya min D 25(OH) Status Range Deficiency <20 ng/mL (50nmol/L) Insufficiency 20 - 30 ng/mL (50 - 75 nmol/L) Sufficiency 30 - 100 ng/mL (75 - 250 nmol/L) Toxicity >100 ng/mL (>250 nmol/L) Performed By: #### L 500.4050, L506.0400, L503.0105, L100.0100, L506.1000, L501.9520 #### [facility] [address] [place], [address] Vital Signs Date Time Vital Sign Value Performing Clinician David vilchis 07-24-2024 08:38-0400 Body height 171.1 cm Dasia Willson MD Work Phone: [facility] 07-24-2024 08:38-0400 Body mass index (BMI) [Ratio] 20.79 kg/m2 Dasia Willson MD Work Phone: [facility] 07-24-2024 08:38-0400 Body weight 60.87 kg Dasia Willson MD Work Phone: [facility] 07-24-2024 08:38-0400 Diastolic blood pressure 64 mm[Hg] Dasia Willson MD Work Phone: [facility] 07-24-2024 08:38-0400 Heart rate 81 /min Dasia Willson MD Work Phone: [facility] 07-24-2024 08:38-0400 Respiratory rate 16 /min Dasia Willson MD Work Phone: [facility] 07-24-2024 08:38-0400 SaO2% (BldA) [Mass fraction] 100 % Dasia Willson MD Work Phone: [facility] 07-24-2024 08:38-0400 Systolic blood pressure 102 mm[Hg] Dasia Willson MD Work Phone: [facility] Encounters Encounter Date Encounter Type Care Provider Facility Start: 07-24-2024 End: 07-24-2024 ambulatory [facility] Facility:[facility] Start: 07-24-2024 End: 07-24-2024 Patient encounter procedure Dasia Willson MD Work Phone: OB/Gynecology Comment on above: Encounter for gyneco logical examination (general) (routine) without abnormal findings (Primary Dx); Screening for cervical cancer; Encounter for screening mammogram for breast cancer Start: 07-24-2024 End: 07-24-2024 Patient encounter status Dasia Willson MD Work Phone: [facility] Start: 11-29-2023 ambulatory Nancy Whatley Sujit y:[facility] Plan of Treatment Date Care Activity Detail Author Start: 11-29-2033 Urine microalbumin profile DTaP,Tdap,Td Vaccine (6 - Td or Tdap) [facility] Start: 07-27-2025 End: 07-27-2025 Patient encounter procedure 07/27/2025 11:20 AM EDT Office Visit OB/Gynecology [address] [place] [address] Dasia Thomas MD [address] [place], [place] [id number] ANNUAL OB/Gynecology Comment on above: ANNUAL Start: 10-20-2024 Screening for malign ant neoplasm of cervix Cervical Cancer Screening [facility] Start: 08-02-2024 Influenza vaccination Influenza Vacc ine (#1) [facility] Start: 08-02-2023 Covid-19 Vaccine ( season) Covid-19 Vaccine ( season) [facility] Start: 2008 Hepatitis B Vaccine (1 of 3 - 19+ 3-dose series) Hepatitis B Vaccine (1 of 3 - 19+ 3-dose series) [facility] Start: 2007 Anxiety Screening Anxiety Screening [facility] Start: 2007 Depression Screening Depression Scre ening [facility] Start: 2007 Hepatitis C screening Hepatitis C Sc jake [facility] PAP TEST PAP TEST Lab Richa pate Encounter for gynecological examination (general) (routine) without abnormal findings Screening for cervical cancer 07/24/2024 9:17 AM EDT [facility] Work Phone: Immunizations Immunization Date Immunization Notes Care Provider Fa cility 03-28-2018 tetanus toxoid, redu rianna diphtheria toxoid, and acellular pertussis vaccine, adsorbed Dsaia Willson MD Work Phone: [facility] 10-28-2017 diphtheria, tetanus toxoids and acellular pertussis vaccine Dasia Willson MD Work Phone: [facility] 03-20-2016 tetanus toxoid, redu rianna diphtheria toxoid, and acellular pertussis vaccine, adsorbed Dasia Willson MD Work Phone: [facility] 06-23-2014 tetanus toxoid, redu rianna diphtheria toxoid, and acellular pertussis vaccine, adsorbed Dasia Willson MD Work Phone: [facility] Payers Date Payer Category Payer Self-pay 2012 Unknown [employer] PPO OOS [id number] 2012-Present [phone] [address] [place] [address] PPO [id number] 2012 Unknown [id number] Unknown [id number] Social History Date Type Detail Facility Start: 11-14-2022 [facility] Start: 11-14-2022 Tobacco use and exposure Smoke less tobacco non-user [facility] Start: 07-24-2024 Alcoholic beverage intake Curr ent non-drinker of alcohol (finding) [facility] Start: 07-24-2024 History of Social function [facility] Start: 07-24-2024 Tobacco use panel [facility] National Score (1-10 0), lower number is lower risk 82 [facility] Start: 10-31-2015 Alcohol Comment None [facility] Start: 1989 Sex assigned at Not on file [facility] Progress note 07-24-2024 Note Date & Type Note Facility 07-24-2024 Note HNO ID: [id number] Author: DASIA THOMAS MD Service: ? 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 3 kids grades 1-4 . Menses: cycles every 28 days and 4 days of flow. Contraception: tubal sterilization HPV vaccine: No Last Pap: 10/23/2019 normal HPV: 10/23/2019 negative History of abnormal pap: No Last mammogram: never Sexually active: Yes History of STDS: None Patient concerns for STD exposure: No. 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 Willson FAMILY HISTORY Problem Relation Age of Onset other (Dementia) Maternal Grandmother Diabetes Maternal Grandfather Hypertension Paternal Grandmother Breast Cancer Maternal Aunt SOCIAL HISTORY Social History Tobacco Use Smoking status: Never Smokeless tobacco: Never Vaping Use Vaping status: Never Used Substance Use Topics Alcohol use: No Comment: None Drug use: No REVIEW OF SYSTEMS Abdomen: No abdominal pain, nausea, vomiting, diarrhea, or constipation. No bloating, early satiety, indigestion, or increased flatulence. Bladder: No dysuria, gross hematuria, urinary frequency, urinary urgency, or incontinence. Breast: No breast lumps, nipple d/c, overlying skin changes, redness or skin retraction. Allergies and current medication updated:Yes EXAM: BP 102/64 Pulse 81 Resp 16 Ht 5' 7.362 (1.71m) Wt 134 lb 3.2 oz (60.9kg) SpO2 100% LMP 07/20/2024 BMI 20.79 kg/(m2). GENERAL: pleasant, female in no apparent [...] external genitalia normal, normal Bartholin's glands, urethra, Teaticket's glands, no vulvar lesions, no cervical lesions, good vaginal support, physiologic discharge present, normal appearing perineal body and perianal region BIMANUAL: uterus normal size, shape and consistency, no adnexal masses, and non-tender RECTOVAGINAL: deferred. NEURO: alert and oriented x3,exam grossly non-focal EXTREMITIES: normal ASSESSMENT/PLAN: 1) Health maintenance: Pap done with HPV. Mammogram starting age 40. Nutrition, exercise and routine health maintenance exams reviewed. Colon cancer screening: start at age 45 2) Contraception: tubal sterilization. Contraceptive options reviewed and information provided. 3) STD screening: Declined STD check. 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 3 kids grades 1-4 . Menses: cycles every 28 days and 4 days of flow. Contraception: tubal sterilization HPV vaccine: No Last Pap: 10/23/2019 normal HPV: 10/23/2019 negative History of abnormal pap: No Last mammogram: never Sexually active: Yes History of STDS: None Patient concerns for STD exposure: No. 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 Willson FAMILY HISTORY Problem Relation Age of Onset other (Dementia) Maternal Grandmother Diabetes Maternal Grandfather Hypertension Paternal Grandmother Breast Cancer Maternal Aunt SOCIAL HISTORY Social History Tobacco Use Smoking status: Never Smokeless tobacco: Never Vaping Use Vaping status: Never Used Substance Use Topics Alcohol use: No Comment: None Drug use: No REVIEW OF SYSTEMS Abdomen: No abdominal pain, nausea, vomiting, diarrhea, or constipation. No bloating, early satiety, indigestion, or increased flatulence. Bladder: No dysuria, gross hematuria, urinary frequency, urinary urgency, or incontinence. Breast: No breast lumps, nipple d/c, overlying skin changes, redness or skin retraction. Allergies and current medication updated:Yes EXAM: BP 102/64 Pulse 81 Resp 16 Ht 5' 7.362 (1.71m) Wt 134 lb 3.2 oz (60.9kg) SpO2 100% LMP 07/20/2024 BMI 20.79 kg/(m^2). GENERAL: pleasant, female in no apparent distress [...] external genitalia normal, normal Bartholin's glands, urethra, Teaticket's glands, no vulvar lesions, no cervical lesions, good vaginal support, physiologic discharge present, normal appearing perineal body and perianal region BIMANUAL: uterus normal size, shape and consistency, no adnexal masses, and non-tender RECTOVAGINAL: deferred. NEURO: alert and oriented x3,exam grossly non-focal EXTREMITIES: normal ASSESSMENT/PLAN: 1) Health maintenance: Pap done with HPV. Mammogram starting age 40. Nutrition, exercise and routine health maintenance exams reviewed. Colon cancer screening: start at age 45 2) Contraception: tubal sterilization. Contraceptive options reviewed and information provided. 3) STD screening: Declined STD check. 4) Follow up one year or sooner as needed Dasia Thibodeaux MD documented in this encounter [facility] Evaluation note Note Date & Type Note Facility Evaluation note Diagnosis Encounter for gynecological examination (general) (routine) without abnormal findings- Primary Screening for cervical cancer Screening for malignant neoplasm of the cervix Encounter for screening mammogram for breast cancer documented in this encounter [facility] Summary Purpose Family History No Family History Records FoundNo Family History Records Found Advance Directives No Advanced Directives Records FoundNo Advanced Directives Records Found Additional Source Comments INFORMATION SOURCE (unrecogn ized section and content) DATE CREATED AUTHOR 12/01/2023 [facility] DATE CREATED AUTHOR AUTHOR'S ORGANIZ ATION 08/06/2024 [facility] Source Comments (unrecognize d section and content) In the event this informatio n is protected by the Federal Confidentiality of Alcohol and Drug Abuse Patient Records regulations: The Federal rules restrict any use of the information to criminally investigate or prosecute any alcohol or drug abuse patient.[facility] Reason for Visit (unrecogniz ed section and content) Reason Comments [facility] (unrecognized sec tion and content) 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 [facility] [employer] [facility]. provides no warranty or guarantee of the accuracy or completeness of information in this document.
[2025-05-27 11:08] LABS: Deamidated Gliadin IgA 8 units (0-19); Deamidated Gliadin IgG 3 units (0-19); Endomysial Antibody IgA Negative (Negative); Immunoglobulin A 180 mg/dL (87-352); t-Transglutaminase IgA <2 U/mL (0-3)
== END | disposition home or self-care (01) ==
PROVIDERS: PCP Family Medicine; Referring Provider Family Medicine; Visit Provider Family Medicine
DX: K59.00 Constipation, unspecified (principal); R14.0 Abdominal distension (gaseous); R63.0 Anorexia
CPT/HCPCS: 36415; 74022; 80053; 82784; 83516; 84443; 85027; 86255